=== PATIENT | male | born 1955 | race Caucasian/White ===

== ENCOUNTER → 2020-03-30 | Outpatient (CLI) | payer MEDICARE ==
[2020-03-31 10:04] LABS: CREATININE,URINE 124.5 mg/dL (Not Estab.); MICRO ALBUMIN/CRE RATIO <2 (0-29)
== END | disposition home or self-care (01) ==
LOC: RESCLI 04:09
PROVIDERS: Internal Medicine
DX: E11.9 Type 2 diabetes mellitus without complications (principal); I10 Essential (primary) hypertension; K21.9 Gastro-esophageal reflux disease without esophagitis; E78.5 Hyperlipidemia, unspecified; Z76.89 Persons encountering health services in other specified circumstances; Z98.890 Other specified postprocedural states; Z79.84 Long term (current) use of oral hypoglycemic drugs; Z79.899 Other long term (current) drug therapy

== ENCOUNTER → 2020-04-01 | Outpatient (CLI) | payer MEDICARE | END | disposition home or self-care (01) | LOC: LAB 09:42 | PROVIDERS: Internal Medicine | DX: E11.9 Type 2 diabetes mellitus without complications (principal) ==

== ENCOUNTER → 2020-04-18 | Outpatient (CLI) | payer MEDICARE ==
[2020-04-18 08:52] LABS: CREATININE 1.49 mg/dL (0.70-1.30); POTASSIUM 4.4 mmol/L (3.5-5.1)
[2020-04-22 07:06] LABS: TESTOSTERONE FREE, (DIRECT) 18.6 pg/mL (6.6-18.1)
== END | disposition home or self-care (01) ==
LOC: LAB 08:04
PROVIDERS: Internal Medicine
DX: E11.65 Type 2 diabetes mellitus with hyperglycemia (principal); E29.1 Testicular hypofunction

== ENCOUNTER → 2020-04-24 | Outpatient (CLI) | payer MEDICARE | END | disposition home or self-care (01) | LOC: RESCLI 00:53 | DX: N52.9 Male erectile dysfunction, unspecified (principal); E11.65 Type 2 diabetes mellitus with hyperglycemia; I10 Essential (primary) hypertension; K21.9 Gastro-esophageal reflux disease without esophagitis; J45.909 Unspecified asthma, uncomplicated; E29.1 Testicular hypofunction; Z68.35 Body mass index [BMI] 35.0-35.9, adult; Z79.899 Other long term (current) drug therapy; Z98.890 Other specified postprocedural states; Z88.8 Allergy status to other drugs, medicaments and biological substances ==

== ENCOUNTER → 2020-05-14 | Outpatient (CLI) | payer MEDICARE | END | disposition home or self-care (01) | LOC: D 14:29 | DX: E11.65 Type 2 diabetes mellitus with hyperglycemia (principal) ==

== ENCOUNTER → 2020-07-03 | Outpatient (CLI) | payer MEDICARE ==
[~2020-07-03] MED LIST: NAPROXEN250 MG PO; TYLENOL325 M1 PO
== END | disposition home or self-care (01) ==
LOC: RESCLI 00:46
PROVIDERS: ATTEND Student in an Organized Health Care Education/Training Program
DX: I12.9 Hypertensive chronic kidney disease with stage 1 through stage 4 chronic kidney disease, or unspecified chronic kidney disease (principal); E11.22 Type 2 diabetes mellitus with diabetic chronic kidney disease; N18.3 Chronic kidney disease, stage 3 (moderate); E11.65 Type 2 diabetes mellitus with hyperglycemia; E78.2 Mixed hyperlipidemia; E29.1 Testicular hypofunction; K21.9 Gastro-esophageal reflux disease without esophagitis; J45.909 Unspecified asthma, uncomplicated; N52.9 Male erectile dysfunction, unspecified; R74.0 Nonspecific elevation of levels of transaminase and lactic acid dehydrogenase [LDH]; E55.9 Vitamin D deficiency, unspecified; Z28.3 Underimmunization status; Z79.899 Other long term (current) drug therapy; Z98.890 Other specified postprocedural states; Z88.8 Allergy status to other drugs, medicaments and biological substances; Z79.84 Long term (current) use of oral hypoglycemic drugs

== ENCOUNTER 2020-07-05 16:57 | Emergency (ER) | payer MEDICARE ==
[~2020-07-05] VITALS: Wt 108.0 kg
[2020-07-05] MEDS ORDERED: TYLENOL325 M1 PO (19:53)
[2020-07-05] MEDS ORDERED: NAPROXEN250 MG PO (19:53)
== END 2020-07-05 19:56 | disposition home or self-care (01) ==
LOC: ED 16:57
DX: S20.212A Contusion of left front wall of thorax, initial encounter (principal); Z88.0 Allergy status to penicillin; Z88.2 Allergy status to sulfonamides; W16.212A Fall in (into) filled bathtub causing other injury, initial encounter; Y93.89 Activity, other specified; Y92.89 Other specified places as the place of occurrence of the external cause; Y99.8 Other external cause status

== ENCOUNTER → 2020-07-25 | Outpatient (CLI) | payer MEDICARE | END | disposition home or self-care (01) | LOC: MRI 09:00 | PROVIDERS: ATTEND Internal Medicine Endocrinology, Diabetes & Metabolism | DX: E29.1 Testicular hypofunction (principal) ==

== ENCOUNTER → 2020-10-17 | Outpatient (CLI) | payer MEDICARE | END | disposition home or self-care (01) | LOC: RESCLI 10-16 00:14 | PROVIDERS: ATTEND Internal Medicine | DX: I12.9 Hypertensive chronic kidney disease with stage 1 through stage 4 chronic kidney disease, or unspecified chronic kidney disease (principal); N18.31 Chronic kidney disease, stage 3a; K21.9 Gastro-esophageal reflux disease without esophagitis; J45.909 Unspecified asthma, uncomplicated; N52.9 Male erectile dysfunction, unspecified; G47.33 Obstructive sleep apnea (adult) (pediatric); E11.65 Type 2 diabetes mellitus with hyperglycemia; E78.2 Mixed hyperlipidemia; Z28.3 Underimmunization status; Z79.899 Other long term (current) drug therapy; Z79.84 Long term (current) use of oral hypoglycemic drugs; Z88.8 Allergy status to other drugs, medicaments and biological substances ==

== ENCOUNTER 2020-10-28 10:14 | Emergency (ER) | payer MEDICARE ==
[~2020-10-28] VITALS: Wt 99.8 kg
[2020-10-28 10:52] LABS: BASO % 0.4 % (0.0-1.0); EOS % 0.6 % (1.0-4.0); HEMATOCRIT 51.1 % (42.0-52.0); LYMPH # 1.2 10*3/uL (1.3-4.4); LYMPH % 26.1 % (27.0-41.0); MEAN CELL VOLUME 88.1 fl (80.0-94.0); MEAN CORPUSCULAR HGB 27.6 pg (27.0-31.0); MEAN CORPUSCULAR HGB CONC 31.3 g/dl (33.0-37.0); MEAN PLATELET VOLUME 11.7 fl (9.6-12.3); MONO # 0.4 10*3/uL (0.1-1.0); MONO % 9.4 % (3.0-9.0); NEUT % 63.3 % (47.0-73.0); PLATELET COUNT AUTOMATED 129 10*3/uL (130-400); RED CELL DISTRI WIDTH 15.5 % (0-14.5); WHITE BLOOD COUNT 4.7 10*3/uL (4.8-10.8)
[2020-10-28 11:07] LABS: ALBUMIN 3.3 gm/dl (3.1-4.5); ALKALINE PHOSPHATASE 43 U/L (45-117); BUN 22 mg/dl (7-24); CHLORIDE 101 mmol/L (98-107); CREATININE 1.38 mg/dL (0.70-1.30); LIPASE 291 U/L (73-393); POTASSIUM 3.5 mmol/L (3.5-5.1); SGOT/AST 46 IU/L (3-35); SGPT/ALT 72 U/L (12-78); SODIUM 136 mmol/L (136-145); TOTAL PROTEIN 7.5 gm/dL (6.4-8.2); TROPONIN I < 0.015 ng/ml (<0.045)
[2020-10-28 11:09] LABS: ACT PARTIAL THROMBO TIME 29.5 SECONDS (20.0-32.1)
== END 2020-10-28 16:08 | disposition home or self-care (01) ==
LOC: ED 10:14
PROVIDERS: Emergency Medicine
DX: J96.01 Acute respiratory failure with hypoxia (principal); J18.9 Pneumonia, unspecified organism; I10 Essential (primary) hypertension; Z20.828 Contact with and (suspected) exposure to other viral communicable diseases; J45.909 Unspecified asthma, uncomplicated; Z88.0 Allergy status to penicillin; Z88.2 Allergy status to sulfonamides; Z79.899 Other long term (current) drug therapy

== ENCOUNTER → 2020-11-02 | Outpatient (CLI) | payer MEDICARE | END | disposition home or self-care (01) | LOC: RESCLI 00:22 | PROVIDERS: ATTEND Family Medicine | DX: I12.9 Hypertensive chronic kidney disease with stage 1 through stage 4 chronic kidney disease, or unspecified chronic kidney disease (principal); N18.9 Chronic kidney disease, unspecified; E11.22 Type 2 diabetes mellitus with diabetic chronic kidney disease; E11.65 Type 2 diabetes mellitus with hyperglycemia; J45.909 Unspecified asthma, uncomplicated; K21.9 Gastro-esophageal reflux disease without esophagitis; E55.9 Vitamin D deficiency, unspecified; Z79.899 Other long term (current) drug therapy; Z88.0 Allergy status to penicillin; Z88.8 Allergy status to other drugs, medicaments and biological substances ==

== ENCOUNTER → 2021-04-09 | Outpatient (CLI) | payer MEDICARE | END | disposition home or self-care (01) | LOC: RESCLI 01:13 | PROVIDERS: ATTEND Family Medicine | DX: E11.65 Type 2 diabetes mellitus with hyperglycemia (principal); I12.9 Hypertensive chronic kidney disease with stage 1 through stage 4 chronic kidney disease, or unspecified chronic kidney disease; E11.22 Type 2 diabetes mellitus with diabetic chronic kidney disease; N18.30 Chronic kidney disease, stage 3 unspecified; E78.5 Hyperlipidemia, unspecified; E29.1 Testicular hypofunction; N52.9 Male erectile dysfunction, unspecified; J45.909 Unspecified asthma, uncomplicated; E55.9 Vitamin D deficiency, unspecified; K21.9 Gastro-esophageal reflux disease without esophagitis; T75.3XXD Motion sickness, subsequent encounter; Z88.0 Allergy status to penicillin; Z79.84 Long term (current) use of oral hypoglycemic drugs; Z79.899 Other long term (current) drug therapy; Z91.09 Other allergy status, other than to drugs and biological substances ==

== ENCOUNTER → 2021-04-15 | Outpatient (CLI) | payer MEDICARE | END | disposition home or self-care (01) | LOC: LAB 07:53 | PROVIDERS: ATTEND Internal Medicine Nephrology | DX: E29.1 Testicular hypofunction (principal) ==

== ENCOUNTER → 2021-08-30 | Outpatient (CLI) | payer MEDICARE ==
[2021-08-30 14:36] LABS: BILIRUBIN Negative (Negative); BLOOD Negative (Negative); CLARITY Clear (Clear); COLOR Dark Yellow (Yellow); GLUCOSE 3+ (Negative); KETONE Negative (Negative); LEUKO ESTERASE Negative (Negative); NITRITE Positive (Negative); PH 5.5 (4.5-8.0); SPECIFIC GRAVITY >= 1.030 (1.001-1.030)
[2021-08-30 15:45] LABS: BACTERIA 1+; RBC 0-2 rbc/hpf (0-2); WBC 21-30 wbc/hpf (0-5)
== END | disposition home or self-care (01) ==
LOC: LAB 13:54
PROVIDERS: Internal Medicine; ATTEND Internal Medicine
DX: R30.0 Dysuria (principal)

== ENCOUNTER → 2021-09-09 | Outpatient (CLI) | payer MEDICARE ==
[2021-09-09 15:01] LABS: BASO % 0.5 % (0.0-1.0); EOS # 0.1 10*3/uL (0.0-0.4); EOS % 1.3 % (1.0-4.0); HEMATOCRIT 49.2 % (42.0-52.0); LYMPH % 25.2 % (27.0-41.0); MEAN CELL VOLUME 87.1 fl (80.0-94.0); MEAN CORPUSCULAR HGB 27.8 pg (27.0-31.0); MEAN CORPUSCULAR HGB CONC 31.9 g/dl (33.0-37.0); MEAN PLATELET VOLUME 11.4 fl (9.6-12.3); MONO # 0.8 10*3/uL (0.1-1.0); MONO % 9.6 % (3.0-9.0); NEUT # 4.9 10*3/uL (2.3-7.9); NEUT % 63.1 % (47.0-73.0); PLATELET COUNT AUTOMATED 187 10*3/uL (130-400); RED BLOOD COUNT 5.65 10*6/uL (4.50-5.90); RED CELL DISTRI WIDTH 14.6 % (0-14.5); WHITE BLOOD COUNT 7.8 10*3/uL (4.8-10.8)
== END | disposition home or self-care (01) ==
LOC: RESCLI 01:29
PROVIDERS: ATTEND Internal Medicine Nephrology
DX: I12.9 Hypertensive chronic kidney disease with stage 1 through stage 4 chronic kidney disease, or unspecified chronic kidney disease (principal); E11.22 Type 2 diabetes mellitus with diabetic chronic kidney disease; N18.30 Chronic kidney disease, stage 3 unspecified; E29.1 Testicular hypofunction; E11.65 Type 2 diabetes mellitus with hyperglycemia; N52.9 Male erectile dysfunction, unspecified; J45.909 Unspecified asthma, uncomplicated; E55.9 Vitamin D deficiency, unspecified; K21.9 Gastro-esophageal reflux disease without esophagitis; Z79.84 Long term (current) use of oral hypoglycemic drugs; Z79.899 Other long term (current) drug therapy; Z88.0 Allergy status to penicillin; Z88.2 Allergy status to sulfonamides; Z98.890 Other specified postprocedural states

== ENCOUNTER → 2021-11-18 | Outpatient (CLI) | payer MEDICARE | END | disposition home or self-care (01) | LOC: COVID19 15:50 | PROVIDERS: ATTEND Student in an Organized Health Care Education/Training Program | DX: Z11.52 Encounter for screening for COVID-19 (principal) ==

== ENCOUNTER → 2022-01-08 | Outpatient (CLI) | payer MEDICARE | END | disposition home or self-care (01) | LOC: RESCLI 00:18 | PROVIDERS: ATTEND Internal Medicine | DX: I10 Essential (primary) hypertension (principal); E11.65 Type 2 diabetes mellitus with hyperglycemia; E29.1 Testicular hypofunction; J45.909 Unspecified asthma, uncomplicated; K21.9 Gastro-esophageal reflux disease without esophagitis; E55.9 Vitamin D deficiency, unspecified; Z98.890 Other specified postprocedural states; Z79.899 Other long term (current) drug therapy ==

== ENCOUNTER → 2022-01-10 | Outpatient (CLI) | payer MEDICARE ==
[2022-01-10 08:17] LABS: BASO # 0.1 10*3/uL (0.0-0.1); BASO % 0.8 % (0.0-1.0); EOS # 0.1 10*3/uL (0.0-0.4); EOS % 2.3 % (1.0-4.0); HEMATOCRIT 51.7 % (42.0-52.0); LYMPH # 1.8 10*3/uL (1.3-4.4); LYMPH % 30.4 % (27.0-41.0); MEAN CELL VOLUME 88.5 fl (80.0-94.0); MEAN CORPUSCULAR HGB 28.4 pg (27.0-31.0); MEAN CORPUSCULAR HGB CONC 32.1 g/dl (33.0-37.0); MEAN PLATELET VOLUME 11.1 fl (9.6-12.3); MONO # 0.7 10*3/uL (0.1-1.0); MONO % 12.1 % (3.0-9.0); NEUT # 3.3 10*3/uL (2.3-7.9); NEUT % 54.2 % (47.0-73.0); PLATELET COUNT AUTOMATED 140 10*3/uL (130-400); RED BLOOD COUNT 5.84 10*6/uL (4.50-5.90); RED CELL DISTRI WIDTH 15.4 % (0-14.5)
[2022-01-14 15:06] LABS: TESTOSTERONE FREE, (DIRECT) 8.1 pg/mL (6.6-18.1)
== END | disposition home or self-care (01) ==
LOC: LAB 07:46
PROVIDERS: Internal Medicine; ATTEND Internal Medicine
DX: E11.65 Type 2 diabetes mellitus with hyperglycemia (principal); E29.1 Testicular hypofunction

== ENCOUNTER → 2022-01-29 | Outpatient (CLI) | payer MEDICARE | END | disposition home or self-care (01) | LOC: RESCLI 02:58 | PROVIDERS: ATTEND Emergency Medicine | DX: I12.9 Hypertensive chronic kidney disease with stage 1 through stage 4 chronic kidney disease, or unspecified chronic kidney disease (principal); E11.22 Type 2 diabetes mellitus with diabetic chronic kidney disease; E11.65 Type 2 diabetes mellitus with hyperglycemia; E29.1 Testicular hypofunction; N52.9 Male erectile dysfunction, unspecified; K21.9 Gastro-esophageal reflux disease without esophagitis; Z79.899 Other long term (current) drug therapy; N18.9 Chronic kidney disease, unspecified; J45.909 Unspecified asthma, uncomplicated; Z88.8 Allergy status to other drugs, medicaments and biological substances; Z88.0 Allergy status to penicillin; Z91.09 Other allergy status, other than to drugs and biological substances ==

== ENCOUNTER → 2022-07-09 | Outpatient (CLI) | payer MEDICARE ==
[2022-07-09 10:51] LABS: BASO # 0.1 10*3/uL (0.0-0.1); BASO % 0.8 % (0.0-1.0); EOS # 0.1 10*3/uL (0.0-0.4); EOS % 1.9 % (1.0-4.0); HEMATOCRIT 53.8 % (42.0-52.0); LYMPH # 1.9 10*3/uL (1.3-4.4); LYMPH % 29.8 % (27.0-41.0); MEAN CELL VOLUME 89.1 fl (80.0-94.0); MEAN CORPUSCULAR HGB CONC 32.5 g/dl (33.0-37.0); MEAN PLATELET VOLUME 11.4 fl (9.6-12.3); MONO # 0.7 10*3/uL (0.1-1.0); MONO % 11.3 % (3.0-9.0); NEUT # 3.6 10*3/uL (2.3-7.9); NEUT % 55.7 % (47.0-73.0); PLATELET COUNT AUTOMATED 156 10*3/uL (130-400); RED BLOOD COUNT 6.04 10*6/uL (4.50-5.90); WHITE BLOOD COUNT 6.5 10*3/uL (4.8-10.8)
[2022-07-09 10:52] LABS: BILIRUBIN Negative (Negative); BLOOD Negative (Negative); CLARITY Clear (Clear); COLOR Yellow (Yellow); GLUCOSE 3+ (Negative); KETONE Trace (Negative); LEUKO ESTERASE Negative (Negative); NITRITE Positive (Negative); PH 5.5 (4.5-8.0); SPECIFIC GRAVITY >= 1.030 (1.001-1.030); UROBILINOGEN 0.2 E.U./dl (0.0-1.0)
[2022-07-09 11:09] LABS: ALKALINE PHOSPHATASE 38 U/L (45-117); BUN 23 mg/dl (7-24); CHLORIDE 105 mmol/L (98-107); CHOLESTEROL 139 mg/dL (<200); CREATININE 1.36 mg/dL (0.70-1.30); LDL CHOLESTEROL 64 mg/dL (9-159); SGOT/AST 29 IU/L (3-35); SGPT/ALT 58 U/L (12-78); SODIUM 141 mmol/L (136-145); TOTAL PROTEIN 7.3 gm/dL (6.4-8.2); TRIGLYCERIDES 186 mg/dl (<150)
[2022-07-09 12:09] LABS: BACTERIA 2+; WBC 16-20 wbc/hpf (0-5)
[2022-07-10 09:07] LABS: CREATININE,URINE 90.4 mg/dL (Not Estab.); MICRO ALBUMIN/CRE RATIO <3 (0-29)
== END | disposition home or self-care (01) ==
LOC: LAB 02:08 → RESCLI 02:08
PROVIDERS: Student in an Organized Health Care Education/Training Program; ATTEND Emergency Medicine
DX: E11.22 Type 2 diabetes mellitus with diabetic chronic kidney disease (principal); I12.9 Hypertensive chronic kidney disease with stage 1 through stage 4 chronic kidney disease, or unspecified chronic kidney disease; I10 Essential (primary) hypertension; E78.5 Hyperlipidemia, unspecified; E29.1 Testicular hypofunction; E11.65 Type 2 diabetes mellitus with hyperglycemia; N52.9 Male erectile dysfunction, unspecified; J45.909 Unspecified asthma, uncomplicated; G62.9 Polyneuropathy, unspecified; E55.9 Vitamin D deficiency, unspecified; K21.9 Gastro-esophageal reflux disease without esophagitis; N18.9 Chronic kidney disease, unspecified; E78.1 Pure hyperglyceridemia; Z88.0 Allergy status to penicillin; Z88.8 Allergy status to other drugs, medicaments and biological substances; Z79.899 Other long term (current) drug therapy; Z79.84 Long term (current) use of oral hypoglycemic drugs; Z98.890 Other specified postprocedural states

== ENCOUNTER → 2022-10-08 | Outpatient (CLI) | payer MEDICARE ==
[2022-10-08 09:47] LABS: BASO # 0.1 10*3/uL (0.0-0.1); BASO % 0.8 % (0.0-1.0); EOS # 0.1 10*3/uL (0.0-0.4); EOS % 1.9 % (1.0-4.0); LYMPH # 1.7 10*3/uL (1.3-4.4); LYMPH % 22.5 % (27.0-41.0); MEAN CELL VOLUME 86.6 fl (80.0-94.0); MEAN CORPUSCULAR HGB 28.9 pg (27.0-31.0); MEAN CORPUSCULAR HGB CONC 33.3 g/dl (33.0-37.0); MEAN PLATELET VOLUME 10.9 fl (9.6-12.3); MONO # 0.7 10*3/uL (0.1-1.0); MONO % 8.9 % (3.0-9.0); NEUT % 65.8 % (47.0-73.0); PLATELET COUNT AUTOMATED 143 10*3/uL (130-400); RED BLOOD COUNT 5.54 10*6/uL (4.50-5.90); RED CELL DISTRI WIDTH 15.3 % (0-14.5); WHITE BLOOD COUNT 7.5 10*3/uL (4.8-10.8)
[2022-10-08 10:08] LABS: ALKALINE PHOSPHATASE 43 U/L (46-116); BUN 19 mg/dl (9-23); CHLORIDE 100 mmol/L (98-107); CREATININE 1.16 mg/dL (0.70-1.30); POTASSIUM 3.4 mmol/L (3.4-5.1); SGPT/ALT 54 U/L (10-49); SODIUM 140 mmol/L (136-145); TOTAL PROTEIN 6.8 gm/dL (6.0-8.0)
== END | disposition home or self-care (01) ==
LOC: RESCLI 02:46
PROVIDERS: Student in an Organized Health Care Education/Training Program; ATTEND Internal Medicine
DX: I10 Essential (primary) hypertension (principal); E11.65 Type 2 diabetes mellitus with hyperglycemia; E78.5 Hyperlipidemia, unspecified; J45.909 Unspecified asthma, uncomplicated; G62.9 Polyneuropathy, unspecified; E55.9 Vitamin D deficiency, unspecified; K21.9 Gastro-esophageal reflux disease without esophagitis; G47.33 Obstructive sleep apnea (adult) (pediatric); E78.1 Pure hyperglyceridemia; N52.9 Male erectile dysfunction, unspecified; Z98.890 Other specified postprocedural states; Z79.84 Long term (current) use of oral hypoglycemic drugs; Z79.899 Other long term (current) drug therapy; Z88.0 Allergy status to penicillin; Z88.2 Allergy status to sulfonamides

== ENCOUNTER → 2022-12-31 | Outpatient (CLI) | payer MEDICARE ==
[2022-12-31 07:43] LABS: BASO % 0.6 % (0.0-1.0); EOS # 0.1 10*3/uL (0.0-0.4); EOS % 2.2 % (1.0-4.0); HEMATOCRIT 52.5 % (42.0-52.0); LYMPH % 31.5 % (27.0-41.0); MEAN CELL VOLUME 88.2 fl (80.0-94.0); MEAN CORPUSCULAR HGB 28.4 pg (27.0-31.0); MEAN CORPUSCULAR HGB CONC 32.2 g/dl (33.0-37.0); MEAN PLATELET VOLUME 11.3 fl (9.6-12.3); MONO # 0.6 10*3/uL (0.1-1.0); MONO % 9.9 % (3.0-9.0); NEUT # 3.5 10*3/uL (2.3-7.9); NEUT % 55.5 % (47.0-73.0); PLATELET COUNT AUTOMATED 158 10*3/uL (130-400); RED BLOOD COUNT 5.95 10*6/uL (4.50-5.90); RED CELL DISTRI WIDTH 14.2 % (0-14.5); WHITE BLOOD COUNT 6.4 10*3/uL (4.8-10.8)
[2022-12-31 08:01] LABS: ALKALINE PHOSPHATASE 44 U/L (46-116); BUN 19 mg/dl (9-23); CHLORIDE 101 mmol/L (98-107); POTASSIUM 3.6 mmol/L (3.4-5.1); SGPT/ALT 36 U/L (10-49); TOTAL PROTEIN 6.9 gm/dL (6.0-8.0)
== END | disposition home or self-care (01) ==
LOC: LAB 07:16
PROVIDERS: ATTEND Student in an Organized Health Care Education/Training Program
DX: I10 Essential (primary) hypertension (principal); E11.65 Type 2 diabetes mellitus with hyperglycemia

== ENCOUNTER → 2023-01-07 | Outpatient (CLI) | payer MEDICARE | END | disposition home or self-care (01) | LOC: RESCLI 01:46 | PROVIDERS: ATTEND Student in an Organized Health Care Education/Training Program | DX: K21.9 Gastro-esophageal reflux disease without esophagitis (principal); N52.9 Male erectile dysfunction, unspecified; E11.65 Type 2 diabetes mellitus with hyperglycemia; E78.5 Hyperlipidemia, unspecified; E78.1 Pure hyperglyceridemia; Z91.09 Other allergy status, other than to drugs and biological substances; J45.909 Unspecified asthma, uncomplicated; I12.9 Hypertensive chronic kidney disease with stage 1 through stage 4 chronic kidney disease, or unspecified chronic kidney disease; Z86.16 Personal history of COVID-19; N18.9 Chronic kidney disease, unspecified; E11.22 Type 2 diabetes mellitus with diabetic chronic kidney disease; E55.9 Vitamin D deficiency, unspecified; Z88.0 Allergy status to penicillin; Z88.2 Allergy status to sulfonamides; Z79.84 Long term (current) use of oral hypoglycemic drugs; Z79.899 Other long term (current) drug therapy ==

== ENCOUNTER → 2023-03-31 | Outpatient (CLI) | payer MEDICARE ==
[2023-03-31 08:11] LABS: BASO # 0.1 10*3/uL (0.0-0.1); BASO % 0.6 % (0.0-1.0); EOS # 0.2 10*3/uL (0.0-0.4); EOS % 1.9 % (1.0-4.0); HEMATOCRIT 50.1 % (42.0-52.0); LYMPH # 1.8 10*3/uL (1.3-4.4); LYMPH % 22.8 % (27.0-41.0); MEAN CELL VOLUME 88.4 fl (80.0-94.0); MEAN CORPUSCULAR HGB CONC 31.7 g/dl (33.0-37.0); MEAN PLATELET VOLUME 10.3 fl (9.6-12.3); MONO # 0.7 10*3/uL (0.1-1.0); MONO % 8.3 % (3.0-9.0); NEUT # 5.3 10*3/uL (2.3-7.9); NEUT % 66.1 % (47.0-73.0); PLATELET COUNT AUTOMATED 152 10*3/uL (130-400); RED BLOOD COUNT 5.67 10*6/uL (4.50-5.90); RED CELL DISTRI WIDTH 16.9 % (0-14.5)
[2023-03-31 09:00] LABS: ALKALINE PHOSPHATASE 48 U/L (46-116); BUN 12 mg/dl (9-23); CHLORIDE 103 mmol/L (98-107); CHOLESTEROL 120 mg/dL (<200); LDL CHOLESTEROL 31 mg/dL (9-159); POTASSIUM 3.9 mmol/L (3.4-5.1); SGPT/ALT 37 U/L (10-49); TOTAL PROTEIN 6.7 gm/dL (6.0-8.0); TRIGLYCERIDES 268 mg/dl (<150)
== END | disposition home or self-care (01) ==
LOC: LAB 07:53
PROVIDERS: ATTEND Student in an Organized Health Care Education/Training Program
DX: I10 Essential (primary) hypertension (principal); E78.5 Hyperlipidemia, unspecified; E11.65 Type 2 diabetes mellitus with hyperglycemia

== ENCOUNTER → 2023-04-08 | Outpatient (CLI) | payer MEDICARE | END | disposition home or self-care (01) | LOC: RESCLI 01:05 | PROVIDERS: ATTEND Family Medicine | DX: Z91.09 Other allergy status, other than to drugs and biological substances (principal); K21.9 Gastro-esophageal reflux disease without esophagitis; N52.9 Male erectile dysfunction, unspecified; I10 Essential (primary) hypertension; E11.9 Type 2 diabetes mellitus without complications; E78.5 Hyperlipidemia, unspecified; F41.9 Anxiety disorder, unspecified; E78.1 Pure hyperglyceridemia; Z98.890 Other specified postprocedural states; Z88.0 Allergy status to penicillin; Z88.2 Allergy status to sulfonamides; Z79.899 Other long term (current) drug therapy ==

== ENCOUNTER → 2024-03-14 | Outpatient (CLI) | payer MEDICARE | END | disposition home or self-care (01) | LOC: RESCLI 02:12 | PROVIDERS: ATTEND Student in an Organized Health Care Education/Training Program | DX: E11.9 Type 2 diabetes mellitus without complications (principal); I10 Essential (primary) hypertension; E78.5 Hyperlipidemia, unspecified; E11.65 Type 2 diabetes mellitus with hyperglycemia; N52.9 Male erectile dysfunction, unspecified; K21.9 Gastro-esophageal reflux disease without esophagitis; E78.1 Pure hyperglyceridemia; F41.9 Anxiety disorder, unspecified; E78.2 Mixed hyperlipidemia; I25.10 Atherosclerotic heart disease of native coronary artery without angina pectoris; Z79.899 Other long term (current) drug therapy; Z88.8 Allergy status to other drugs, medicaments and biological substances; Z88.2 Allergy status to sulfonamides; Z88.0 Allergy status to penicillin; Z91.09 Other allergy status, other than to drugs and biological substances ==

== ENCOUNTER 2024-04-04 15:47 | Emergency (ER) | payer MEDICARE ==
[~2024-04-04] VITALS: Ht 170.2 cm; Wt 113.4 kg
[2024-04-04] MEDS ORDERED: Tdap Vaccine 0.5 ML SYR (Adult Vaccine) IM ONE (15:55)
[2024-04-04] MEDS ORDERED: Clopidogrel75 MG PO (16:24)
[2024-04-04] MEDS ORDERED: HYDROCHLOROTHIA50 M1 PO (16:26)
[2024-04-04] MEDS ORDERED: LOPRESSOR25 MG PO (16:27)
[2024-04-04] MEDS ORDERED: VALSARTAN320 MG PO (16:27)
[2024-04-04] MEDS ORDERED: HYDROXYZINE PAM25 M1 PO (16:28)
[2024-04-04] MEDS ORDERED: AMLODIPINE BESYL5 MG PO (16:29)
[2024-04-04] MEDS ORDERED: GLIPIZIDE5 MG PO (16:30)
[2024-04-04] MEDS ORDERED: VICTOZA 2-0.6 MG/0.1 SC (16:31)
[2024-04-04] MEDS ORDERED: FLONASE ALLERG9.9 ML NAS (16:32)
[2024-04-04] MEDS ORDERED: FARXIGA10 M1 PO (16:32)
[2024-04-04] MEDS ORDERED: FENOFIBRATE145 M1 PO (16:32)
[2024-04-04] MEDS ORDERED: OMEPRAZOLE40 MG PO (16:33)
== END 2024-04-04 18:48 | disposition home or self-care (01) ==
LOC: ED 15:47
DX: S01.01XA Laceration without foreign body of scalp, initial encounter (principal); J45.909 Unspecified asthma, uncomplicated; I10 Essential (primary) hypertension; Z88.0 Allergy status to penicillin; Z88.2 Allergy status to sulfonamides; Z98.890 Other specified postprocedural states; W19.XXXA Unspecified fall, initial encounter; Y93.89 Activity, other specified; Y92.89 Other specified places as the place of occurrence of the external cause; Y99.8 Other external cause status